=== PATIENT | male | born 1950 | race Hispanic/Latino ===

== ENCOUNTER → 2024-04-10 09:06 | Outpatient (CLI) | payer MEDICARE, OTHER, SELFPAY ==
--- NOTE | 2024-04-10 09:10 | DI.ECHO.S_ITS ---
[facility] +---------+ [facility] : : [address] : : [place] : : [id number] : : Phone: [phone] Echocardiogram Report + + :Name: KHAI JUAREZ Study Date: 04/10/2024 Height: 68 in : :[facility] ReadingLocation: Weight: 120 lb : : Gender: Male BSA: 1.6 m2 : :: 1950 Age: 73 yrs BP: 127/79 mmHg: :Reason For Study: CARDIOMYOPATHY : :Ordering Physician: EVA, : :JILLIAN Performed By: Meredith Tinajero : :Referring: JILLIAN VELASQUEZ : + + Interpretation Summary The patient was in sinus tachycardia with heart rates between 97-104 bpm during the exam. The left ventricle is mildly dilated. Left ventricular ejection fraction is estimated to be 40 +/- 5%. Previously 45 to 50%. Compared to the prior exam, the left ventricular function is reduced. There is mild to moderate global hypokinesis of the left ventricle. The right ventricle is normal in size and function. There is moderate mitral regurgitation. Compared to the prior echo study, there has been no change in the severity of mitral regurgitation. The mitral regurgitant jet is eccentrically directed. There is moderate aortic regurgitation. Previously mild to moderate aortic regurgitation. There is mild tricuspid regurgitation. The right ventricular systolic pressure is estimated to be at least 21 mmHg based on an estimated right atrial pressure of 3 mm Hg. There is a small pericardial effusion noted (new). There are no echocardiographic or Doppler indications for cardiac tamponade. Procedure: A two-dimensional transthoracic echocardiogram with color flow and Doppler was performed. The study quality was technically adequate. Comparison is made with the echocardiogram of 09/01/2021. The patient was in sinus tachycardia with heart rates between 97-104 bpm during the exam. Left Ventricle: There is normal left ventricular wall thickness. The left ventricle is mildly dilated. There is no thrombus. Left ventricular ejection fraction is estimated to be 40 +/- 5%. Compared to the prior exam, the left ventricular function is reduced. There is mild to moderate global hypokinesis of the left ventricle. Diastolic function could not be accurately assessed due to unobtainable data. Right Ventricle: The right ventricle is normal in size and function. Atria: The left atrium is moderately dilated. Right atrial size is normal. There is no Doppler evidence for an interatrial shunt. The atrial septum is aneurysmal. Mitral Valve: The mitral valve leaflets appear borderline thickened, but open well. There is moderate mitral regurgitation. The mitral regurgitant jet is eccentrically directed. Compared to the prior echo study, there has been no change in the severity of mitral regurgitation. Aortic Valve: The aortic valve is trileaflet. The aortic valve opens well. There is no aortic valve stenosis. There is moderate aortic regurgitation. Tricuspid Valve: The tricuspid valve leaflets are thin and pliable. There is mild tricuspid regurgitation. The right ventricular systolic pressure is estimated to be at least 21 mmHg based on an estimated right atrial pressure of 3 mm Hg. Pulmonic Valve: The pulmonic valve leaflets are thin and pliable; valve motion is normal. There is mild pulmonic regurgitation. Great Vessels: The aortic root is normal size. The dimensions of the ascending aorta are normal. The IVC is of normal diameter and collapses greater than 50% with a sniff. This suggests a low right atrial pressure of 3 mm Hg. Pericardium/ Pleura There is a small pericardial effusion noted. There are no echocardiographic or Doppler indications for cardiac tamponade. There is no pleural effusion. MMode/2D Measurements & Calculations LVIDd: 6.2 cm LVOT diam: 2.2 cm LVIDs: 4.9 cm Ao root diam: 4.0 cm FS: 20.9 % asc Aorta Diam: 3.6 cm EPSS: 2.6 cm Ao Arch Diam (Prox Trans): 3.1 cm IVSd: 0.99 cm LVPWd: 1.1 cm LV gilmore. diameter/BSA (cm/m^2): 3.8 LV sys. diameter/BSA (cm/m^2): 3.0 LA A2 area: 16.2 cm2 RA long axis: 4.6 cm LA A4 area: 15.5 cm2 RA area: 12.5 cm2 LA length (vol): 4.6 cm RA vol: 28.9 ml LA vol: 46.8 ml RA : 17.5 ml/m2 LA vol index: 28.5 ml/m2 IVC diam: 1.8 cm RVD1 (basal): 3.8 cm RVD2 (mid): 3.0 cm TAPSE: 2.0 cm Doppler Measurements & Calculations Ao V2 max: 117.2 cm/sec LVOT Max Frank: 68.5 cm/sec Ao V2 mean: 85.0 cm/sec LV V1 max P.9 mmHg Ao max P.5 mmHg LV V1 VTI: 10.8 cm Ao mean P.2 mmHg SHAJI(I,D): 2.2 cm2 Ao V2 VTI: 18.7 cm SHAJI(V,D): 2.3 cm2 sev ratio: 0.58 SHAJI indexed to BSA (cm^2/m^2): 1.4 AI P1/2t: 457.3 msec AI dec slope: 317.2 cm/sec2 Med Peak E' Frank: 4.3 cm/sec TR max frank: 211.7 cm/sec Lat Peak E' Frank: 6.0 cm/sec TR max P.9 mmHg PA V2 max: 85.6 cm/sec PA V2 mean: 65.8 cm/sec PA mean P.8 mmHg PA pr(Accel): 27.6 mmHg SV(LVOT): 41.8 ml Reading Physician:01:02 PM
== END ==
PROVIDERS: Referring Provider Nurse Practitioner Acute Care; Visit Provider Nurse Practitioner Acute Care
DX: I08.3 Combined rheumatic disorders of mitral, aortic and tricuspid valves (principal); I25.5 Ischemic cardiomyopathy; I31.39 Other pericardial effusion (noninflammatory)
CPT/HCPCS: 93306